=== PATIENT | male | born 1960 | race Caucasian/White ===

== ENCOUNTER 2021-11-09 13:14 | Emergency (ER) | payer BC ==
[2021-11-09 14:07] VITALS: BP 123/73; PULSE 105; RESP 20; TEMP 97.8
[2021-11-09] MEDS ORDERED: ACETAMINOPHEN TAB 325 MG TAB PO STA (14:35)
[2021-11-09] MEDS ORDERED: LIDOCAINE/EPINEPHR/TETRACAINE 5 ML BOTTLE TOPICAL ONE (14:35)
--- NOTE | 2021-11-09 14:40 | ED ---
General Adult HPI - General Chief complaint: Head Injury Stated complaint: head injury, lac to head,sent from urgent care Time Seen by Provider: 11/09/21 14:30 Source: patient, RN notes reviewed Mode of arrival: wheelchair Limitations: no limitations - History of Present Illness Initial comments: Well-appearing 61-year-old gentleman presents to the emergency room with complaints of scalp laceration. Patient states he was putting a plow on the truck and it fell and hit him on the head. He did not loose consciousness. He did go to the urgent care and directed him to go to the emergency room for evaluation and possible CAT scan. Patient states his tetanus shot is up-to-date. He denies any focal neurological deficits. He does complain of a frontal headache, the wound is parietal -: hour(s) (2) Location: head Radiation: non-radiation Severity scale (1-10): 4 Quality: constant Consistency: constant Improves with: none Worsens with: none Associated Symptoms: headaches Treatments Prior to Arrival: other (urgent care) - Related Data Allergies Allergy/AdvReac Type Severity Reaction Status Date / Time Sulfa (Sulfonamide Allergy Unknown Verified 11/09/21 14:07 Antibiotics) Childhood Review of Systems ROS Statement: Those systems with pertinent positive or pertinent negative responses have been documented in the HPI. ROS Other: All systems not noted in ROS Statement are negative. Past Medical History Past Medical History: Hypertension History of Any Multi-Drug Resistant Organisms: None Reported Past Surgical History: Heart Catheterization With Stent Past Psychological History: No Psychological Hx Reported Smoking Status: Former smoker Past Alcohol Use History: Occasional Past Drug Use History: None Reported General Exam Limitations: no limitations General appearance: alert, in no apparent distress Head exam: Present: normocephalic, other (4cm laceration parietal scalp) Eye exam: Present: normal appearance, PERRL, EOMI. Absent: scleral icterus, conjunctival injection, nystagmus, periorbital swelling Pupils: Present: normal accommodation ENT exam: Present: normal exam, mucous membranes moist Neck exam: Present: normal inspection, full ROM. Absent: tenderness, meningismus, lymphadenopathy, thyromegaly Cardiovascular Exam: Present: tachycardia. Absent: JVD Extremities exam: Present: normal inspection, full ROM, normal capillary refill. Absent: tenderness, pedal edema, joint swelling, calf tenderness Neurological exam: Present: alert, oriented X3, CN II-XII intact Expanded Patient oriented to: Present: person, place, time Speech: Present: fluid speech Cranial nerves: EOM's Intact: Normal Motor strength exam: RUE: 5, LUE: 5, RLE: 5, LLE: 5 Eye Response: (4) open spontaneously Motor Response: (6) obeys commands Verbal Response: (5) oriented Stevie Total: 15 Psychiatric exam: Present: normal affect, normal mood Skin exam: Present: warm, dry, intact, normal color. Absent: rash, cyanosis, diaphoretic, petechiae, pallor Course Vital Signs 11/09/21 14:02 Temperature 97.8 F Pulse Rate 105 H Respiratory 20 Rate Blood Pressure 123/73 O2 Sat by Pulse 95 Oximetry Procedures - Laceration Laceration #1 Consent Obtained: verbal consent Indication: laceration Site: scalp Description: linear Anesthetic Used: lidocaine 1% (LET cream) Pre-repair: irrigated extensively Type of Sutures: other (fanta) Number of Sutures: 4 Patient Tolerated Procedure: well, no complications Medical Decision Making - Medical Decision Making 61-year-old presents to the emergency room with complaints of scalp laceration sustained after attaching his snow plow to his truck and it fell and hit him on the head. He did not loose consciousness. CT shows no intracranial process or skull fractures. Patient states his tetanus shot is up-to-date. He denies any focal neurological deficits. He has a steady gait. The wound was closed with 4 fanta. He was directed to use bacitracin twice a day and had fanta removed in 7 days. Return to emergency room if any worsening symptoms. Case discussed with Dr. Palmer. Disposition Clinical Impression: Laceration Disposition: HOME SELF-CARE Condition: Good Instructions (If sedation given, give patient instructions): Laceration (ED), Staple Care (ED) Additional Instructions: Keep wound clean and dry. You can put bacitracin on the wound twice a day. Follow-up with your primary care doctor in 7 days for staple removal. Return to the emergency room with any new or concerning symptoms including fever, drainage or increased pain. Is patient prescribed a controlled substance at d/c from ED?: No Referrals: Nonstaff,Physician [Primary Care Provider] - 1-2 days Time of Disposition: 15:41
--- NOTE | 2021-11-09 14:58 | CT ---
EXAMINATION TYPE: CT brain wo con DATE OF EXAM: 11/09/2021 COMPARISON: None HISTORY: Head injury with laceration. CT DLP: 1119.4 mGycm Automated exposure control for dose reduction was used. Ventricles have normal size. There is no mass effect or midline shift. There is no sign of intracrani al hemorrhage. The calvarium is intact. There is normal aeration of the mastoid sinuses. Skull base i s intact. IMPRESSION: Negative unenhanced head CT scan.
[2021-11-09] MEDS ORDERED: BACITRACIN OINT 1 EACH PACKET TOPICAL ONE (15:38)
== END 2021-11-09 15:52 | disposition home or self-care (01) ==
LOC: EC 13:14
DX: S01.01XA Laceration without foreign body of scalp, initial encounter (principal); I10 Essential (primary) hypertension; Z87.891 Personal history of nicotine dependence; W22.8XXA Striking against or struck by other objects, initial encounter
CPT/HCPCS: 12002; 70450; 99283